=== PATIENT | female | born 1965 | race Caucasian/White ===

== ENCOUNTER 2019-12-26 14:43 | Emergency (ER) | payer BC ==
[2019-12-26] MEDS ORDERED: Bacitracin Oint 1 GM U/D Packet TOP ONE (14:51)
[2019-12-26] MEDS ORDERED: Lidocaine 1% with EPINEPHrine 1:100,000 50 ML MDV INFILT STA (14:51)
--- NOTE | 2019-12-26 15:10 | EDM.PDOC ---
ED HPI GENERAL MEDICAL PROBLEM - General Chief Complaint: Laceration Stated Complaint: LACERATION R EYEBROW Time Seen by Provider: 12/26/19 15:09 Source of Information: Reports: Patient, RN Notes Reviewed History Limitations: Reports: No Limitations - History of Present Illness INITIAL COMMENTS - FREE TEXT/NARRATIVE: Najma presents today for complaints of laceration to right eyebrow. She was knee [place] the [place] prior to arrival, the board struck her in the face and she developed a laceration. She denies LOC, change in vision or other injuries. She reports her tetanus is up to date. Left Upper Eyelid Pain Score (Numeric/FACES): 5 - Related Data Allergies Allergy/AdvReac Type Severity Reaction Status Date / Time No Known Allergies Allergy Verified 12/26/19 15:01 Social & Family History - Tobacco Use Smoking Status *Q: Never Smoker Second Hand Smoke Exposure: No - Caffeine Use Caffeine Use: Reports: None - Alcohol Use Days Per Week of Alcohol Use: 1 Number of Drinks Per Day: 2 Total Drinks Per Week: 2 - Recreational Drug Use Recreational Drug Use: No ED ROS GENERAL - Review of Systems Review Of Systems: See Below Constitutional: Reports: No Symptoms HEENT: Reports: Other (laceration to right eyebrow, bleeding controlled. ). Denies: Eye Discharge, Eye Pain Respiratory: Reports: No Symptoms Cardiovascular: Reports: No Symptoms Musculoskeletal: Reports: No Symptoms Skin: Reports: Other (laceration to right eyebrow, bleeding controlled. ) Neurological: Reports: No Symptoms ED EXAM, SKIN/RASH Exam: See Below Exam Limited By: No Limitations General Appearance: Alert, WD/WN, No Apparent Distress Eye Exam: Bilateral Eye: EOMI, Normal Inspection, PERRL Ears: Normal External Exam, Normal Canal, Hearing Grossly Normal, Normal TMs Nose: Normal Inspection, Normal Mucosa, No Blood Throat/Mouth: Normal Inspection, Normal Lips, Normal Teeth, Normal Gums, Normal Oropharynx, Normal Voice, No Airway Compromise Head: Normocephalic, Facial Tenderness, Other (3cm laceration, linear to right eye brow at edge of hair line, bleeding controlled.). No: Facial Swelling, Sinus Tenderness Neck: Normal Inspection, Supple, Non-Tender, Full Range of Motion Respiratory/Chest: No Respiratory Distress, No Accessory Muscle Use, Chest Non- Tender Cardiovascular: Normal Peripheral Pulses, Regular Rate, Rhythm, No Edema, No Murmur Neurological: Alert, Oriented, Normal Cognition, Normal Gait, Normal Reflexes, No Motor/Sensory Deficits Psychiatric: Normal Affect, Normal Mood Skin: Warm, Dry, Normal Color, Wound/Incision, Other (Laceration 3cm, linear right eye brow) Location, Skin: Face Characteristics: Linear Associated features: Tenderness. No: Warmth, Swelling, Induration, Scaling, Crusting, Weeping Lymphatic: No Adenopathy ED SKIN PROCEDURES - Laceration/Wound Repair Right Face Appearance: Subcutaneous Distal NVT: Neuro & Vascular Intact Anesthetic Type: Local Local Anesthesia - Lidocaine (Xylocaine): 1% with EPI Local Anesthetic Volume: 2cc Skin Prep: Chlorhexidine (Hibiciens) Saline Irrigation (cc's): 5 Exploration/Debridement/Repair: Wound Explored, In a Bloodless Field, No Foreign Material Found Closed with: Sutures Lac/Wound length In cm: 3 Suture Size: 5-0 # of Sutures: 7 Suture Type: Prolene Suture Size: 5-0 # of Sutures: 1 Repaired with: Chromic Sterile Dressing Applied: Nurse Tetanus Status Addressed: Yes Complications: No Progress/Comments: Patient tolerated well. Bacitracin applied to wound followed by bandaid Course - Vital Signs Last Recorded V/S: Last Vital Signs Temp 35.5 C L 12/26/19 14:58 Pulse 76 12/26/19 14:58 Resp 16 12/26/19 14:58 BP 149/81 H 12/26/19 14:58 Pulse Ox 96 12/26/19 14:54 - Orders/Labs/Meds Meds: Medications Discontinued Medications Generic Name Dose Route Start Last Admin Trade Name Billie PRN Reason Stop Dose Admin Bacitracin 1 dose 12/26/19 14:51 12/26/19 15:17 Bacitracin Oint 1 Gm TOP 12/26/19 14:52 1 dose ONETIME ONE Administration Lidocaine/Epinephrine 5 ml 12/26/19 14:51 12/26/19 15:18 Xylocaine 1% With Epinephrine 1:100,000 INFILT 12/26/19 14:52 5 ml NOW STA Administration Departure - Departure Time of Disposition: 15:45 Disposition: Home, Self-Care 01 Condition: Good Clinical Impression: Laceration of right eyebrow without complication - Discharge Information *PRESCRIPTION DRUG MONITORING PROGRAM REVIEWED*: Not Applicable *COPY OF PRESCRIPTION DRUG MONITORING REPORT IN PATIENT YAIR: Not Applicable Instructions: Sutured Wound Care, Laceration Care, Adult, [id number] Referrals: PCP,None [Primary Care Provider] - Forms: ED Department Discharge Additional Instructions: Keep area clean and dry. [address] to skin, one subcutaneous suture for total of 8. Subcutaneous will dissolve over time. Use bacitracin to eye brow twice per day. Wash face per usual with less friction over eyebrow. Have sutures removed in 7 days. Cover laceration when it could become dirty. Once sutures removed and scab is gone, use mederma to the area to minimize scar. Use sunscreen for 12 months to minimize scar. Return as needed. If area becomes red, swollen or has discharge start course of cephalexin. If no infection begins, discard prescription. Sepsis Event Note (ED) - Evaluation Sepsis Screening Result: No Definite Risk - Focused Exam Vital Signs: Vital Signs Temp Pulse Resp BP Pulse Ox 12/26/19 14:58 35.5 C L 76 16 149/81 H 12/26/19 14:54 35.8 C L 80 16 149/81 H 96 - Assessment/Plan Assessment:: Laceration of right eyebrow without complication Plan: Keep area clean and dry. [address] to skin, one subcutaneous suture for total of 8. Subcutaneous will dissolve over time. Use bacitracin to eye brow twice per day. Wash face per usual with less friction over eyebrow. Have sutures removed in 7 days. Cover laceration when it could become dirty. Once sutures removed and scab is gone, use mederma to the area to minimize scar. Use sunscreen for 12 months to minimize scar. Return as needed. If area becomes red, swollen or has discharge start course of cephalexin. If no infection begins, discard prescription.
== END 2019-12-26 16:00 | disposition home or self-care (01) ==
LOC: JP.ED 14:43
DX: S01.111A Laceration without foreign body of right eyelid and periocular area, initial encounter (principal); W22.8XXA Striking against or struck by other objects, initial encounter; Y92.828 Other wilderness area as the place of occurrence of the external cause
CPT/HCPCS: 12013; 12052; 99282; 99282-25